=== PATIENT | male | born 1990 ===

== ENCOUNTER 2017-05-27 20:10 | Emergency (ER) | payer SELFPAY ==
[2017-05-27] MEDS ORDERED: Lidocaine 1%* 5 ML VIAL INJ ONE (21:31)
--- NOTE | 2017-05-27 21:44 | ED ---
Laceration/Wound HPI - HPI Summary HPI Summary: 26 male presents with chin laceration today. He states he tripped and fell on his chin. He has a 1 cm laceration to the chin that is actively bleeding. His immunizations are up-to-date. He has full range of motion his jaw. He denies any jaw pain. He denies any other injury. He denies any loss of conscious. He denies any head injury. He denies any nausea or vomiting. - History of Current Complaint Stated Complaint: CHIN LAC Time Seen by Provider: 05/27/17 20:46 Pain Intensity: 4 - Allergy/Home Medications Allergies/Adverse Reactions: Allergies Allergy/AdvReac Type Severity Reaction Status Date / Time Penicillins Allergy Unknown Verified 05/27/17 20:15 Reaction Details PMH/Surg Hx/FS Hx/Imm Hx Endocrine/Hematology History: Denies: Hx Anticoagulant Therapy Cardiovascular History: Denies: Hx Hypertension Infectious Disease History: No Infectious Disease History: Denies: Traveled Outside the [place] in Last 30 Days - Family History Known Family History: Negative: Cardiac Disease - Social History Alcohol Use: None Substance Use Type: Reports: None Smoking Status (MU): Never Smoked Tobacco Review of Systems Negative: Fever Positive: Other - jaw pain Negative: Chest Pain Negative: Shortness Of Breath Positive: Other - laceration All Other Systems Reviewed And Are Negative: Yes Physical Exam Triage Information Reviewed: Yes Vital Signs On Initial Exam: Initial Vitals Temp Pulse Resp BP Pulse Ox 97.4 F 83 16 123/63 98 05/27/17 20:15 05/27/17 20:15 05/27/17 20:15 05/27/17 20:15 05/27/17 20:15 Vital Signs Reviewed: Yes Appearance: Positive: Well-Appearing Skin: Positive: Warm, Dry, Other - 1 1/2cm by 1/2cm on chin Head/Face: Positive: Normal Head/Face Inspection, Other - no step off, racoon eyes, jean baptiste sign Eyes: Positive: Normal, EOMI, DAMON, Conjunctiva Clear ENT: Positive: Normal ENT inspection, Pharynx normal, TMs normal, Other - nontender jaw Respiratory/Lung Sounds: Positive: Clear to Auscultation, Breath Sounds Present Cardiovascular: Positive: Normal, RRR Musculoskeletal: Positive: Normal Neurological: Positive: Normal Psychiatric: Positive: Normal Procedures - Laceration/Wound Repair 1 Location: head Description: Linear Anesthesia: Local, 1.0% Length, Depth and Shape: 1 1/2cm by 1/2cm Irrigated w/ Saline (ccs): 100 Laceration/Wound Explored: no foreign body removed Closure: Single Layer Number of Sutures: 3 Layer Closure?: No Sterile Dressing Applied?: Yes - [facility] - Vital Signs Vital Signs Temp Pulse Resp BP Pulse Ox 05/27/17 20:15 97.4 F 83 16 123/63 98 - Laboratory Lab Statement: Any lab studies that have been ordered have been reviewed, and results considered in the medical decision making process. Laceration Repair Course/Dx - Course Course Of Treatment: 26 male presents with chin laceration today. He states he tripped and fell on his chin. He has a 1 cm laceration to the chin that is actively bleeding. His immunizations are up-to-date. He has full range of motion his jaw. He denies any jaw pain. He denies any other injury. He denies any loss of conscious. He denies any head injury. He denies any nausea or vomiting. On exam has a 1-1/2 cm laceration that cleaned and closed with 3 sutures. Patient understands and agrees with plan. - Differential Dx Differental Diagnoses: Abrasion, Avulsion, Laceration - Clinical Impression Provider Diagnoses: Laceration of chin Discharge - Discharge Plan Condition: Good Disposition: HOME Patient Education Materials: Care For Your Stitches (ED) Referrals: [facility] - Beau MARIA [Primary Care Provider] - Additional Instructions: Keep area clean and dry for 24 hours Take Tylenol or ibuprofen for pain every 6 hours Return to ED or primary for suture removal in 5 days Return to ED if develop signs of infection such as fever, spreading redness, or pus formation
[2017-05-27 22:15] VITALS: BP 118/63
== END 2017-05-27 22:14 | disposition home or self-care (01) ==
LOC: ED 20:10
DX: S01.81XA Laceration without foreign body of other part of head, initial encounter (principal); W01.0XXA Fall on same level from slipping, tripping and stumbling without subsequent striking against object, initial encounter; Y92.9 Unspecified place or not applicable; Z88.0 Allergy status to penicillin
CPT/HCPCS: 12011; 99282